=== PATIENT | female | born 1975 | race Caucasian/White ===

== ENCOUNTER 2021-03-20 01:08 | Inpatient (IN) | payer SELFPAY ==
[2021-03-20 01:50] VITALS: BMI 29.1
[2021-03-20 04:02] LABS: BASO % 0.2 % (0-2.0); EOS % 0.1 % (0-4.5); HEMATOCRIT 39.2 % (32.4-45.2); HEMOGLOBIN 12.8 GM/dL (10.7-15.3); LYMPH % 7.6 % (8-40); MCH 27.2 pg (25.7-33.7); MCHC 32.8 g/dl (32.0-36.0); MEAN CELL VOLUME 82.9 fl (80-96); MONO % 4.5 % (3.8-10.2); NEUT % 87.6 % (42.8-82.8); PLATELET COUNT 404 10^3/uL (134-434); RBC 4.72 M/mm3 (3.60-5.2); RDW 14.3 % (11.6-15.6); WHITE BLOOD COUNT 17.1 K/mm3 (4.0-10.0)
[2021-03-20 04:21] LABS: CHLORIDE 104 mmol/L (98-107)
[2021-03-20 04:23] LABS: BLOOD UREA NITROGEN 14.1 mg/dL (7-18); CALCIUM 8.8 mg/dL (8.5-10.1); LIPASE 137 U/L (73-393)
[2021-03-20 04:24] LABS: ALBUMIN 3.3 g/dl (3.4-5.0); CO2 21 mmol/L (21-32); GLUCOSE,RANDOM 203 mg/dL (74-106)
[2021-03-20 04:26] LABS: CREATININE 0.6 mg/dL (0.55-1.3); SGOT/AST 19 U/L (15-37); SGPT/ALT 32 U/L (13-61)
[2021-03-20] MEDS ORDERED: MAG HYDROX/AL HYDROX/SIMETH -MYLANTA- ORAL SUSPENSION PO ONE (04:26)
[2021-03-20] MEDS ORDERED: ACETAMINOPHEN 1000 MG/100 ML BAG IVPB ONE ×3 (04:26→20:00)
[2021-03-20] MEDS ORDERED: FAMOTIDINE 20 MG/50 ML IVPB 20 MG/50 ML MG IVPB ONE ×2 (04:26→04:52)
[2021-03-20 04:28] LABS: BILIRUBIN,TOTAL 0.3 mg/dL (0.2-1); TOT PROT 7.3 g/dl (6.4-8.2)
[2021-03-20 04:29] LABS: ALK PHOS 120 U/L (45-117)
[2021-03-20 04:45] LABS: ANION GAP 10 MMOL/L (8-16); SODIUM 136 mmol/L (136-145)
[2021-03-20] MEDS ORDERED: ACETAMINOPHEN INJECTION 100 ML IVPB ONE ×2 (04:52→19:55)
[2021-03-20] MEDS ORDERED: MAG HYDROX/AL HYDROX/SIMETH 30 ML UNIT-DOSE CUP ONE (04:52)
[2021-03-20] MEDS ORDERED: SODIUM CHLORIDE 1,000 ML IV STA (05:58)
[2021-03-20 09:03] LABS: PH,URINE 5.5 (5.0-8.0); URINE APPEARANCE CLEAR; URINE BILIRUBIN NEGATIVE (NEGATIVE); URINE COLOR YELLOW; URINE GLUCOSE (UA) 1+ (NEGATIVE); URINE KETONE NEGATIVE (NEGATIVE); URINE LEUK ESTERASE NEGATIVE (NEGATIVE); URINE NITRITE NEGATIVE (NEGATIVE); URINE PROTEIN NEGATIVE (NEGATIVE); URINE UROBILINOGEN 0.2 mg/dL (0.2-1.0)
[2021-03-20] MEDS ORDERED: CEFTRIAXONE 1 GM in DEXTROSE 5%-WATER - 100 ML IVPB ONE (13:40)
[2021-03-20] MEDS ORDERED: CEFTRIAXONE 1 GM/50 ML BAG ONE (13:44)
[2021-03-20] MEDS ORDERED: ONDANSETRON 4 MG/2 ML VIAL IVPUSH PRN ×2 (17:07→20:40)
[2021-03-20] MEDS ORDERED: PROMETHAZINE HCL 25 MG/1 ML VIAL IVPUSH PRN (17:07)
[2021-03-20] MEDS ORDERED: oxyCODONE HCL 5 MG TABLET PO PRN ×2 (17:07→20:40)
[2021-03-20] MEDS ORDERED: fentaNYL CITRATE 250 MCG/5 ML VIAL ONE (17:11)
[2021-03-20] MEDS ORDERED: LIDOCAINE HCL/PF 2% SDV 5ML VIAL ONE (17:11)
[2021-03-20] MEDS ORDERED: PROPOFOL 20 ML ONE (17:12)
[2021-03-20] MEDS ORDERED: ROCURONIUM BROMIDE 50 MG/5 ML SYRINGE ONE (17:12)
[2021-03-20] MEDS ORDERED: MIDAZOLAM HCL 2 MG/2 ML SINGLE DOSE VIAL ONE (17:12)
[2021-03-20] MEDS ORDERED: BUPIVACAINE HCL/PF 0.5% (5MG/ML) 10 ML VIAL ONE (17:19)
[2021-03-20] MEDS ORDERED: ONDANSETRON 4 MG/2 ML VIAL ONE (19:43)
[2021-03-20] MEDS ORDERED: HYDROmorphone HCl 2 MG/ML VIAL IVPB ONE (20:15)
[2021-03-20] MEDS ORDERED: HYDROmorphone HCl 2 MG/ML VIAL ONE (20:16)
[2021-03-20] MEDS ORDERED: HYDROmorphone HCl 2 MG/ML VIAL IVPUSH ONE (20:26)
[2021-03-20 21:42] LABS: INR 1.56 (0.83-1.09); PROTHROMBIN TIME (PATIENT) 17.5 SEC (9.7-13.0)
[2021-03-20 21:45] LABS: ACTIVATED PTT 32.9 SECONDS (25.2-36.5)
[2021-03-20] MEDS ORDERED: ACETAMINOPHEN 500 MG TABLET (FP) PO SCH (22:00)
[2021-03-21] MEDS: ACETAMINOPHEN 500 MG TABLET (FP) PO SCH ×2 (01:34→10:31)
[2021-03-21] MEDS: KETOROLAC TROMETHAMINE 30 MG/1 ML VIAL IVPUSH SCH ×2 (01:34→12:11)
[2021-03-21] MEDS: INSULIN SLIDING SCALE (NOVOLOG) 1 VIAL SQ SCH ×3 (06:01→17:27)
[2021-03-21] MEDS ORDERED: INSULIN SLIDING SCALE (NOVOLOG) 1 VIAL SQ SCH (07:00)
[2021-03-21] MEDS ORDERED: ENOXAPARIN NA (PORCINE) 40 MG/0.4 ML DISP.SYRIN SQ SCH (10:00)
[2021-03-21] MEDS ORDERED: CEFTRIAXONE 1 GM in DEXTROSE 5%-WATER - 50 ML IVPB SCH (10:00)
[2021-03-21] MEDS ORDERED: cefTRIAXone SODIUM 1 GM VIAL ONE (10:15)
[2021-03-21] MEDS ORDERED: DEXTROSE 5%-WATER - 50 ML IVPB ONE (10:15)
[2021-03-21] MEDS: SODIUM CHLORIDE 1,000 ML IV SCH ×3 (10:30→12:10)
[2021-03-21] MEDS: CEFTRIAXONE 1 GM in DEXTROSE 5%-WATER - 50 ML IVPB SCH (10:32)
[2021-03-21] MEDS: ENOXAPARIN NA (PORCINE) 40 MG/0.4 ML DISP.SYRIN SQ SCH (10:32)
[2021-03-21] MEDS ORDERED: ACETAMINOPHEN 500 MG TABLET (FP) PO PRN (11:11)
[2021-03-21] MEDS ORDERED: FLU VACC QS2021-22(6MOS UP)/PF 60 MCG/0.5 ML SYRINGE IM ONE (11:59)
[2021-03-21 12:15] LABS: BASO % 0.2 % (0-2.0); EOS % 0.1 % (0-4.5); HEMATOCRIT 33.9 % (32.4-45.2); MCH 27.3 pg (25.7-33.7); MCHC 32.4 g/dl (32.0-36.0); MEAN CELL VOLUME 84.3 fl (80-96); MEAN PLT VOLUME 7.3 fl (7.5-11.1); NEUT % 69.7 % (42.8-82.8); PLATELET COUNT 386 10^3/uL (134-434); RBC 4.02 M/mm3 (3.60-5.2); RDW 14.5 % (11.6-15.6); WHITE BLOOD COUNT 10.5 K/mm3 (4.0-10.0)
[2021-03-21 12:32] LABS: BLOOD UREA NITROGEN 7.1 mg/dL (7-18); MAGNESIUM 2.2 mg/dL (1.8-2.4)
[2021-03-21 12:35] LABS: PHOSPHOROUS 3.3 mg/dL (2.5-4.9)
[2021-03-21 12:36] LABS: CREATININE 0.6 mg/dL (0.55-1.3)
[2021-03-21 12:37] LABS: BILIRUBIN,TOTAL 0.3 mg/dL (0.2-1); TOT PROT 6.2 g/dl (6.4-8.2)
[2021-03-21 12:47] LABS: ALBUMIN 2.5 g/dl (3.4-5.0)
[2021-03-21] MEDS: oxyCODONE HCL 5 MG TABLET PO PRN (21:33)
[2021-03-22] MEDS: SODIUM CHLORIDE 1,000 ML IV SCH (02:05)
[2021-03-22] MEDS: INSULIN SLIDING SCALE (NOVOLOG) 1 VIAL SQ SCH ×2 (06:26→11:11)
[2021-03-22] MEDS: oxyCODONE HCL 5 MG TABLET PO PRN ×2 (07:22→14:33)
[2021-03-22] MEDS: CEFTRIAXONE 1 GM in DEXTROSE 5%-WATER - 50 ML IVPB SCH (10:28)
[2021-03-22] MEDS: ENOXAPARIN NA (PORCINE) 40 MG/0.4 ML DISP.SYRIN SQ SCH (10:28)
[2021-03-22 12:49] LABS: BASO % 0.5 % (0-2.0); EOS % 0.4 % (0-4.5); HEMATOCRIT 32.5 % (32.4-45.2); HEMOGLOBIN 10.6 GM/dL (10.7-15.3); LYMPH % 31.8 % (8-40); MCH 27.3 pg (25.7-33.7); MCHC 32.6 g/dl (32.0-36.0); MEAN CELL VOLUME 83.9 fl (80-96); MEAN PLT VOLUME 6.9 fl (7.5-11.1); MONO % 7.7 % (3.8-10.2); NEUT % 59.6 % (42.8-82.8); PLATELET COUNT 407 10^3/uL (134-434); RBC 3.88 M/mm3 (3.60-5.2); RDW 14.5 % (11.6-15.6); WHITE BLOOD COUNT 8.4 K/mm3 (4.0-10.0)
[2021-03-22 13:11] LABS: CALCIUM 8.1 mg/dL (8.5-10.1)
[2021-03-22 13:12] LABS: ALBUMIN 2.3 g/dl (3.4-5.0)
[2021-03-22 13:15] LABS: CREATININE 0.5 mg/dL (0.55-1.3)
[2021-03-22 13:16] LABS: BILIRUBIN,TOTAL 0.2 mg/dL (0.2-1)
[2021-03-22 13:17] LABS: TOT PROT 5.8 g/dl (6.4-8.2)
[2021-03-22 13:37] VITALS: BP 128/76; PULSE 103; TEMP 98.2
[2021-03-22] MEDS ORDERED: AMOX TR/POT CLAV 875MG/125MG TABLETS (FP) PO ONE (13:57)
== END 2021-03-22 15:24 | disposition home or self-care (01) | DRG 263 ==
LOC: JER 01:08 → JERBED 13:27 → J5S 20:55
PROVIDERS: ADMIT Internal Medicine; ATTEND Internal Medicine
PROC: 0FT44ZZ Resection of Gallbladder, Percutaneous Endoscopic Approach (ICD-10-PCS; principal; 2021-03-20 17:00)
DX: K80.12 Calculus of gallbladder with acute and chronic cholecystitis without obstruction (principal); E11.9 Type 2 diabetes mellitus without complications
CPT/HCPCS: 36415; 76705-TC; 80053; 81003; 82550; 82962; 83690; 83735; 84100; 84484; 84703; 85025; 85610; 85730; 86850; 86900; 86901; 87077; 87086; 88304-TC; 93005; 93010; 94010; 94760; 99285-25; C9803; J0131; U0003; U0005

== ENCOUNTER 2023-07-26 17:28 | Emergency (ER) | payer OTHER ==
[2023-07-26 17:39] VITALS: BP 106/67; PULSE 88; RESP 18; TEMP 98.7; BMI 27.3
[2023-07-26] MEDS ORDERED: ACETAMINOPHEN INJECTION 100 ML IVPB ONE (18:17)
[2023-07-26] MEDS: SODIUM CHLORIDE 0.9% 500 ML INFUS.BAG IV ONE (18:25)
[2023-07-26] MEDS: ACETAMINOPHEN 1000 MG/100 ML BAG IVPB ONE (18:25)
[2023-07-26 18:34] LABS: BASO % 0.6 % (0-2.0); EOS % 0.3 % (0-4.5); HEMATOCRIT 37.8 % (32.4-45.2); HEMOGLOBIN 12.1 GM/dL (10.7-15.3); LYMPH % 18.1 % (8-40); MCH 27.3 pg (25.7-33.7); MCHC 32.1 g/dl (32.0-36.0); MEAN CELL VOLUME 84.9 fl (80-96); MEAN PLT VOLUME 7.1 fl (7.5-11.1); MONO % 6.1 % (3.8-10.2); NEUT % 74.9 % (42.8-82.8); PLATELET COUNT 414 10^3/uL (134-434); RBC 4.45 M/mm3 (3.60-5.2); RDW 14.5 % (11.6-15.6); WHITE BLOOD COUNT 18.4 K/mm3 (4.0-10.0)
[2023-07-26 18:34] LABS: HCG,QUALITATIVE URINE Negative
[2023-07-26 18:44] LABS: EPI CELLS 10 /uL (0-25.1); HYALINE CASTS 565 /uL (0-3.1); PH,URINE 5.5 (5.0-8.0); URINE APPEARANCE TURBID; URINE BACTERIA 3786 /uL (0-1359); URINE BILIRUBIN NEGATIVE (NEGATIVE); URINE COLOR RED; URINE GLUCOSE (UA) NEGATIVE (NEGATIVE); URINE KETONE NEGATIVE (NEGATIVE); URINE LEUK ESTERASE 3+ (NEGATIVE); URINE NITRITE POSITIVE (NEGATIVE); URINE PROTEIN 2+ (NEGATIVE); URINE UROBILINOGEN 0.2 mg/dL (0.2-1.0)
[2023-07-26 18:58] LABS: BLOOD UREA NITROGEN 16.5 mg/dL (7-18); CALCIUM 9.8 mg/dL (8.5-10.1)
[2023-07-26 19:02] LABS: CREATININE 1.1 mg/dL (0.55-1.3)
[2023-07-26 19:03] LABS: BILIRUBIN,TOTAL 0.2 mg/dL (0.2-1); TOT PROT 7.6 g/dl (6.4-8.2)
[2023-07-26] MEDS ORDERED: CEFTRIAXONE 1 GM/50 ML BAG ONE (19:06)
[2023-07-26] MEDS: CEFTRIAXONE 1 GM in DEXTROSE 5%-WATER - 100 ML IVPB ONE (19:13)
[2023-07-26 19:24] LABS: URINE RBC 23958 /uL (0-23.9); YEAST NONE SEEN (NEGATIVE)
[2023-07-26 19:25] LABS: URINE WBC 9815 /uL (0-25.8)
== END 2023-07-26 21:58 | disposition home or self-care (01) ==
LOC: JER 17:28
PROC: 3E03329 Introduction of Other Anti-infective into Peripheral Vein, Percutaneous Approach (ICD-10-PCS; principal; 2023-07-26)
PROC: 3E033NZ Introduction of Analgesics, Hypnotics, Sedatives into Peripheral Vein, Percutaneous Approach (ICD-10-PCS; 2023-07-26)
DX: R10.30 Lower abdominal pain, unspecified (principal); N30.01 Acute cystitis with hematuria
CPT/HCPCS: 36415; 74176-TC; 80053; 81003; 84703; 85025; 87086; 87186; 99284-25; J0131